=== PATIENT | male | born 2000 | race Caucasian/White ===

== ENCOUNTER 2020-10-05 08:08 | Emergency (ER) | payer BC ==
[~2020-10-05] VITALS: Ht 167.6 cm; Wt 66.2 kg
[2020-10-05 08:24] VITALS: BP 102/77
[2020-10-05] MEDS ORDERED: ALBU8.5H8 INH (08:30)
--- NOTE | 2020-10-05 08:30 | NUR ---
Tashia lee in [facility] - 10/05/20 at 0834 by USMAN PHLEB AT BEDSIDE FOR BLOOD DRAW.
[2020-10-05] MEDS ORDERED: ONDANSETRON 4 MG TAB.RAPDIS ONE (08:49)
--- NOTE | 2020-10-05 08:55 | NUR ---
Patient discharged to home in stable condition. Written and verbal after care instructions given. Patient verbalizes understanding of instruction.
[2020-10-05] MEDS ORDERED: ONDANSETRON 4 MG TAB.RAPDIS SL ONE (09:00)
== END 2020-10-05 08:55 | disposition home or self-care (01) ==
LOC: ER 08:14
DX: E86.0 Dehydration (principal); F10.10 Alcohol abuse, uncomplicated; J45.909 Unspecified asthma, uncomplicated; F17.200 Nicotine dependence, unspecified, uncomplicated; Z79.899 Other long term (current) drug therapy; Y90.9 Presence of alcohol in blood, level not specified
CPT/HCPCS: 99283; Q0162